=== PATIENT | male | born 1990 | race Caucasian/White ===

== ENCOUNTER 2018-01-21 14:01 | Emergency (ER) | payer OTHER ==
[~2018-01-21] VITALS: Ht 180.3 cm; Wt 86.2 kg
[2018-01-21 14:15] VITALS: BP 116/56
[2018-01-21 15:40] VITALS: BP 116/56
== END 2018-01-21 15:40 | disposition home or self-care (01) ==
LOC: MED 14:01
DX: S01.01XA Laceration without foreign body of scalp, initial encounter (principal); Y08.89XA Assault by other specified means, initial encounter; Y93.89 Activity, other specified; Y92.89 Other specified places as the place of occurrence of the external cause; Y99.8 Other external cause status
CPT/HCPCS: 90471; 90715; 99283

== ENCOUNTER 2019-10-11 10:35 | Emergency (ER) | payer OTHER ==
[~2019-10-11] VITALS: Ht 182.9 cm; Wt 81.6 kg
--- NOTE | 2019-10-11 10:35 | NUR ---
Patient BIBA ALS, transferred to bed 7. RN evaluating the patient at bedside.
[2019-10-11 10:40] VITALS: BP 137/84
--- NOTE | 2019-10-11 10:45 | NUR ---
29 YEAR OLD MALE BIBA AFTER METH OVERDOSE AT 12 LAST NIGHT. PER EMS PT WAS RUNNING FROM [employer] AND THEN INGESTED METH BAG ALL AT ONCE. PT WAS FOUND ON GROUND AND THEN AMBULANCE WAS CALLED. PT WAS GIVEN 4MG OF ZOFRAN IVP IN ROUTE. ON ARRIVAL PT PLACED ON MONITOR, VS STABLE RR 35. PT SHIVERING, JITTERY. PT STATES HE HAS ALOT OF NAUSEA, GIVEN BAG. PT DENIES CHEST PAIN OR SOB. PT GCS 14 ([id number]), BREATHING EVEN AND UNLABORED, SKIN WARM AND DRY. BED IN LOWEST POSITION, LOCKED, BED RAIL UPX1. ERMD MADE AWARE OF STATUS PMH - DENIES ALLERGIES - NKA
--- NOTE | 2019-10-11 10:48 | NUR ---
Dr. Castro is evaluating the patient at bedside.
[2019-10-11] MEDS ORDERED: ONDANSETRON 4 MG/2 ML VIAL IVP ONE (10:55)
[2019-10-11] MEDS ORDERED: NACL 0.9% 1,000 ML IV ONE (10:55)
--- NOTE | 2019-10-11 11:05 | NUR ---
ERMD AWARE PT GOT 4MG ZOFRAN IN ROUTE BY EMS
--- NOTE | 2019-10-11 11:15 | NUR ---
PER DR MELGAR DOES NOT WANT ANY LABS ON PATIENT. PATIENT GIVEN APPPLEJUICE, IS DRINKING
--- NOTE | 2019-10-11 12:12 | NUR ---
PT STATES HE CANNOT WALK AT THIS TIME TO BE D/C. PT WILL REST IN BED FOR A WHILE LONGER.
--- NOTE | 2019-10-11 12:20 | NUR ---
PT REMAINS ON MONITOR, VS STABLE. PT ALERT AND AWAKE, BREATHING EVEN AND UNLABORED. NO DISTRESS NOTED WILL CONTINUE TO MONITOR
--- NOTE | 2019-10-11 12:30 | NUR ---
ATTEMPTED TO WALK PATIENT, PATIENT WAS SHAKING AND WOBBILY, ASSISTED BACK INTO BED. ERMD MADE AWARE
--- NOTE | 2019-10-11 13:43 | NUR ---
PT ALERT AND AWAKE, BREATHING EVEN AND UNLABORED. PT STILL SHAKING, GIVEN 2 CUPS OF WATER TO DRINK
[2019-10-11 14:20] VITALS: BP 116/83
--- NOTE | 2019-10-11 14:20 | NUR ---
Patient discharged with v/s stable. Written and verbal after care instructions about nausea and vomitting and methamphetamine given and explained. Patient alert, oriented and verbalized understanding of instructions. Ambulatory with steady gait. All questions addressed prior to discharge. ID band removed. Patient advised to follow up with PMD. Rx of zofran given. Patient educated on indication of medication including possible reaction and side effects. Opportunity to ask questions provided and answered.
--- NOTE | 2019-10-11 14:20 | NUR ---
pt ambulated to and from bathroom with even and steady gait, ermd aware
--- NOTE | 2019-10-15 08:51 | NUR ---
LATE ENTRY-CONFIRMED WITH RN OF NS COMPLETED AT 1156 10/11/19.
== END 2019-10-11 14:20 | disposition home or self-care (01) ==
LOC: MED 10:35
DX: R11.2 Nausea with vomiting, unspecified (principal); T43.621A Poisoning by amphetamines, accidental (unintentional), initial encounter; Y92.89 Other specified places as the place of occurrence of the external cause; R50.9 Fever, unspecified
CPT/HCPCS: 93005; 96361; 96374; 99283; J2405; J7030

== ENCOUNTER 2019-10-11 17:59 | Emergency (ER) | payer OTHER ==
[~2019-10-11] VITALS: Ht 182.9 cm; Wt 80.7 kg
[2019-10-11 18:10] VITALS: BP 142/71
--- NOTE | 2019-10-11 18:32 | NUR ---
PA LEONARD EVALUATING PT AT THIS TIME
[2019-10-11] MEDS ORDERED: ONDANSETRON 4 MG/2 ML VIAL IVP ONE (18:45)
[2019-10-11] MEDS ORDERED: NACL 0.9% 1,000 ML IV ONE (18:45)
--- NOTE | 2019-10-11 18:45 | NUR ---
PT PLACED IN BED 11 FROM CHAIR A
--- NOTE | 2019-10-11 18:51 | NUR ---
RAD AT BEDSIDE
--- NOTE | 2019-10-11 18:51 | NUR ---
29 Y/O M C/C NAUSEA X 1 DAY. PT SEEN EARLIER IN [facility] ER FOR INGESTION OF UNKNOWN QUANTITY OF CONCENTRATED METH. PT PRESENTS TACHYCARDIC,EUPNIC,AMBULATORY,A/OX4,BP WNL. PT CALM,COOPERATIVE. PER PT NKA. NO HX. NO RX. NO DIARREAH/VOMITING. SIDE RAIL X1.
--- NOTE | 2019-10-11 18:52 | NUR ---
SPOKE TO POISON CONTROL, PER STAFF MEMBER TO GET A CT SCAN OF ABDOMEN TO VISUALIZE IF "BAGGIE" OF METH IS STILL IN BODY, IF YES THEN WHOLE BOWEL IRRIGATION UNTIL STOOLS ARE CLEAR. OTHERWISE SYMPTOMATIC TREATMENT AND BENZOS IF NEEDED. PRIMARY RN MADE AWARE, CHANDA LEONARD, AND JUDY PAGE.
[2019-10-11] MEDS ORDERED: METOCLOPRAMIDE 10 MG/2 ML INJ VIAL IVP STA (18:54)
[2019-10-11 19:00] LABS: BASOPHILS % (AUTO) 0.1 % (0.0-2.0); HEMATOCRIT 44.4 % (36-52); HEMOGLOBIN 14.6 g/dL (12.0-18.0); LYMPHOCYTES # (AUTO) 0.9 K/uL (2.0-11.5); LYMPHOCYTES % (AUTO) 9.4 % (20.5-51.1); MEAN CORPUSCULAR HEMOGLOBIN 30 pg (27-31); MEAN CORPUSCULAR HGB CONC 33 g/dL (33-37); MEAN CORPUSCULAR VOLUME 91.6 fL (80-94); NEUTROPHILS # (AUTO) 7.4 K/uL (1.8-7.7); NEUTROPHILS % (AUTO) 79.5 % (42.2-75.2); PLATELET COUNT (AUTO) 387 K/uL (140-450); RED BLOOD CELL COUNT(AUTO) 4.85 MIL/uL (4.20-6.10); RED CELL DISTRIBUTION WIDTH 13.4 % (11.6-13.7); WHITE BLOOD COUNT (AUTO) 9.2 K/uL (4.8-10.8)
--- NOTE | 2019-10-11 19:05 | NUR ---
REPORT RECEIVED FROM MARLON CHAVARRIA FOR CONTINUITY OF CARE
--- NOTE | 2019-10-11 19:06 | NUR ---
REPORT GIVEN TO STEVE CHAVARRIA FOR CONTINUITY OF CARE
[2019-10-11 19:09] LABS: ALBUMIN 4.2 g/dL (3.4-5.0); ANION GAP 22.1 (8-16); ASPARTATE AMINOTRANSFERASE 24 U/L (15-37); CARBON DIOXIDE 20.3 mmol/L (21-32); CHLORIDE 103 mmol/L (98-107); CREATININE 1.1 mg/dL (0.6-1.3); GFR ARICAN-AMERICAN 103 mL/min (>90); GLUCOSE 118 mg/dL (74-106); POTASSIUM 3.4 mmol/L (3.5-5.1); SODIUM SERUM 142 mmol/L (136-145); TOTAL BILIRUBIN 0.8 mg/dL (0.0-1.0); UREA NITROGEN, BLOOD 12 mg/dL (7-18)
--- NOTE | 2019-10-11 19:12 | NUR ---
PT TAKEN TO CT VIA W/C
--- NOTE | 2019-10-11 19:21 | NUR ---
PT RETURNED TO BED 11 VIA W/C
[2019-10-11 19:29] LABS: ACETAMINOPHEN < 0.5 ug/ml (10-30); SALICYLATE < 2.8 mg/dL (2.8-20.0)
--- NOTE | 2019-10-11 20:02 | NUR ---
PA AT BEDSIDE EVALUATING PT
[2019-10-11 20:13] VITALS: BP 134/79
--- NOTE | 2019-10-11 20:13 | NUR ---
Patient discharged with v/s stable. Written and verbal after care instructions given and explained. Patient alert, oriented and verbalized understanding of instructions. Ambulatory with steady gait. All questions addressed prior to discharge. ID band removed. IV Discontinued. Patient advised to follow up with PMD. Rx of REGLAN given. Patient educated on indication of medication including possible reaction and side effects. Opportunity to ask questions provided and answered.
== END 2019-10-11 20:13 | disposition home or self-care (01) ==
LOC: MED 17:59
DX: F15.10 Other stimulant abuse, uncomplicated (principal); R11.2 Nausea with vomiting, unspecified; R19.7 Diarrhea, unspecified; F17.210 Nicotine dependence, cigarettes, uncomplicated; F12.10 Cannabis abuse, uncomplicated; R03.0 Elevated blood-pressure reading, without diagnosis of hypertension
CPT/HCPCS: 36415; 71045; 74176; 80053; 85025; 93005; 96374; 96375; 99285; G0480; G0482; J2405; J2765; J7030; Q0092